=== PATIENT | male | born 2005 | race Caucasian/White ===

== ENCOUNTER 2024-04-23 15:49 | Emergency (ER) | payer BC, SELFPAY ==
[2024-04-23 16:01] VITALS: BP 103/60; PULSE 57; RESP 16; TEMP 37.3; O2SAT 100
--- NOTE | 2024-04-23 16:10 | ED.EAR ---
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 States that they pressure eyes the plane in his ears did not pop and he noticed blood coming out of his left ear with discomfort and decreased hearing. Review of Systems Review of Systems: Pertinent positives per HPI. Patient denies any fever, chills, rash, headache, visual changes, dizziness, cough, runny nose, sore throat, shortness of breath, chest pain, palpitations, nausea, vomiting, diarrhea, constipation, abdominal pain, or any urinary issues. PMFSH Comments At the time of my signature, I reviewed and agree with the nursing past medical, surgical, social, and family history. There is no relevant family history pertinent to the patient complaint. Exam Narrative: General: Well-developed, well nourished, in no apparent distress Head: Normocephalic, atraumatic Eyes: Pupils equally round and reactive to light bilaterally, EOM intact, sclera and conjunctive clear, no discharge, lids normal Ears: TM bulging, intact/red/bloody to the right TM due to pressure trauma, TM partially ruptured to the left TM with blood noted in the ear canal, decreased hearing in the left ear when compared to the right. Nose: Nares patent, no discharge, no inflammation, no sinus tenderness. Mouth: Oropharynx without lesions or masses, good dentition, MMM. Neck: Supple, trachea midline, no enlargement of anterior or posterior cervical nodes, no thyroid masses or goiter palpable. Cardio: Regular rate and rhythm, s1 and s2 normal, no murmur appreciated. Resp: Clear to auscultation bilaterally anteriorly and posteriorly, no rhonchi, rales, wheezing or rubs Course Course Emergency Course: Portions of this record may have been created with voice recognition software. Level of Care: Express Care Visit Vital Signs Vital signs: Vital Signs Temperature 37.3 C 04/23/24 16:01 Pulse Rate 57 L 04/23/24 16:01 Respiratory Rate 16 04/23/24 16:01 Blood Pressure 103/60 04/23/24 16:01 Pulse Oximetry 100 04/23/24 16:01 Temperature 37.3 C 04/23/24 16:01 Pulse Rate 57 L 04/23/24 16:01 Respiratory Rate 16 04/23/24 16:01 Blood Pressure 103/60 04/23/24 16:01 Pulse Oximetry 100 04/23/24 16:01 Vital signs reviewed Medical Decision Making MDM Narrative Medical decision making narrative: At the time of visit patient is resting comfortably on the exam table. Patient appears to be nontoxic. Plan: I suspect patient has left ruptured tympanic membrane due to trauma/pressure. Right TM appears to have some trauma as well but is intact. Will send in prescription for ofloxacin ear drops and amoxicillin. Supportive measures were discussed with the patient and they voiced understanding discharge instructions and agrees to treatment plan. Return precautions reviewed Differential Diagnosis Differential Diagnosis: Otitis media, otitis externa, spontaneous rupture of tympanic membrane due to trauma/pressure, hearing difficulty Vital Signs Vital Signs: Vital Signs Temperature 37.3 C 04/23/24 16:01 Pulse Rate 57 L 04/23/24 16:01 Respiratory Rate 16 04/23/24 16:01 Blood Pressure 103/60 04/23/24 16:01 Pulse Oximetry 100 04/23/24 16:01 Temperature 37.3 C 04/23/24 16:01 Pulse Rate 57 L 04/23/24 16:01 Respiratory Rate 16 04/23/24 16:01 Blood Pressure 103/60 04/23/24 16:01 Pulse Oximetry 100 04/23/24 16:01 Discharge Plan Discharge Clinical Impression: Rupture of tympanic membrane, traumatic Qualifiers: Encounter type: initial encounter Laterality: left Qualifie
== END 2024-04-23 16:23 | disposition home or self-care (01) ==
PROVIDERS: Emergency Provider Nurse Practitioner Family
DX: S09.22XA Traumatic rupture of left ear drum, initial encounter (principal); X58.XXXA Exposure to other specified factors, initial encounter; Y99.0 Civilian activity done for income or pay
CPT/HCPCS: 99203; G0463

== ENCOUNTER 2024-05-18 11:36 | Emergency (ER) | payer BC, SELFPAY ==
[2024-05-18 11:45] VITALS: BP 111/68; PULSE 75; RESP 16; TEMP 37.1; O2SAT 100
--- NOTE | 2024-05-18 11:46 | ED.EAR ---
HPI - Ear Problem General Chief complaint: Ear Stated complaint: Right Earache Time Seen by Provider: 05/18/24 11:46 Source: patient, RN notes reviewed and old records reviewed Mode of arrival: ambulatory Limitations: no limitations History of Present Illness HPI Narrative: 19-year-old male presents to the [facility] with a 2 day history of right ear discomfort and drainage Related Data Allergies Allergy/AdvReac Type Severity Reaction Status Date / Time No Known Allergies Allergy Verified 05/18/24 11:53 Review of Systems Review of Systems: All systems reviewed & are unremarkable except as noted in HPI and below Constitutional: Constitutional: Reports no additional constitutional complaints Eyes: Eyes: Reports no additional eye complaints ENT: Reports as per HPI and Reports otalgia Cardiovascular: Cardiovascular: Reports no additional cardiovascular complaints, Denies chest pain and Denies dyspnea Respiratory: Respiratory: Reports no additional respiratory complaints, Denies chest congestion, Denies cough and Denies dyspnea Gastrointestinal: Gastrointestinal: Reports no additional gastrointestinal complaints, Denies abdominal pain, Denies nausea and Denies vomiting Musculoskeletal: Musculoskeletal: Reports no additional musculoskeletal complaints Integumentary/Breasts: Skin/Breast: Reports system reviewed and no additional complaints, except as docu Neurologic: Reports system reviewed and no additional complaints, except as documented Psychiatric: Psychiatric: Reports no additional psychiatric complaints Allergic/Immunologic: Allergic/Immunologic: Reports no additional allergic/immunologic complaints PMFSH Comments At the time of my signature, I reviewed and agree with the nursing past medical, surgical, social, and family history. There is no relevant family history pertinent to the patient complaint. Exam Const: General: cooperative, healthy appearing, comfortable, no acute distress, well developed, alert and well nourished Nutritional Appearance: well nourished Orientation/consciousness: patient oriented x3 Limitations: no limitations HENMT: Head: normal to inspection Ears: hearing grossly normal bilaterally, external ears normal, TM normal on the left and TM abnormal bulging on the right, erythematous on the right and perforated with purulent discharge on the right (at 5oclock) Face/Nose/Sinus: Normal external nose present, Normal nares present, Normal nasal mucous membranes and turbinates present, normal facial exam and face symmetric Face and sinus: normal facial exam and face symmetric Eyes: General: appearance normal, both eyes and all related structures Alignment and Position: alignment normal Periorbital: periorbital findings normal Pupils: Equal, round and reactive pupils present EOM: EOMs intact bilaterally Neck: Neck: normal visual inspection, full ROM, no lymphadenopathy and no meningeal signs Chest: Chest palpation & inspection: normal inspection of the chest Resp: Effort & Inspection: normal respiratory effort and able to speak in complete sentences Auscultation: clear to auscultation bilaterally, no crackles, no rales, no rhonchi and no wheezes Cardio: Rate: regular rate Rhythm: regular rhythm Skin: General skin exam: normal color and no rashes or lesions noted Lesions: no lesions Rashes: no rashes Trauma: no lacerations or abrasions Wounds: no wounds Neuro: General: patient oriented x3, gait normal, tone normal, moves all extremities and no meningeal signs Cranial nerves: Yes Equal, round and reactive pupils present Cognition (Neuro): normal cognition Speech: normal speech Gait exam (Neuro): Normal gait present Extrem: General: normal to inspection, full ROM, capillary refill normal and normal gait Psych: Appearance: grossly normal and well kempt Mental Status: mental status grossly normal Speech and movement: Normal speech and movement present and Clear speech present Affect: no
== END 2024-05-18 12:03 | disposition home or self-care (01) ==
PROVIDERS: Emergency Provider Nurse Practitioner
DX: H66.91 Otitis media, unspecified, right ear (principal); H72.91 Unspecified perforation of tympanic membrane, right ear
CPT/HCPCS: 99213; G0463